=== PATIENT | female | born 1975 | race Caucasian/White ===

== ENCOUNTER 2017-03-08 21:24 | Emergency (ER) | payer BC, MEDICAID ==
[~2017-03-08] VITALS: Ht 160 cm; Wt 98.6 kg
[~2017-03-08 21:24] MED LIST: CIPR500T87 PO; DOCU-131 PO; IBUP-1222 PO; METR500T PO; ONDA4TAB13 SL; OXYC-302 PO; PREN1TAB52 PO; TRAM50TA2 PO
[2017-03-08 21:55] LABS: HEMATOCRIT 43.6 % (34.6-47.8); HEMOGLOBIN 14.7 g/dL (11.7-16.4); WHITE BLOOD COUNT 15.3 x10^3/uL (3.4-10)
[2017-03-08] MEDS ORDERED: morphine SULFATE 10 MG/ML, 1ML ONE (21:55)
[2017-03-08] MEDS ORDERED: ONDANSETRON 2MG/ML, 2ML ONE (21:55)
[2017-03-08] MEDS ORDERED: SODIUM CHLORIDE FLUSH 10ML SYR IVF ONE (22:00)
[2017-03-08] MEDS ORDERED: MORPHINE SULFATE 4 MG/ML, 1ML IVPush PRN (22:00)
[2017-03-08] MEDS ORDERED: SODIUM CHLORIDE 0.9% 1,000ML IVBOLUS ONE (22:00)
[2017-03-08] MEDS ORDERED: ONDANSETRON 2MG/ML, 2ML IVPush ONE (22:00)
[2017-03-08 22:07] LABS: ASPARTATE AMINO TRANSFERASE 13 U/L (15-37); BLOOD UREA NITROGEN 12 mg/dL (7-18)
[2017-03-08] MEDS ORDERED: OMNIPAQUE 350 MG/ML, 100ML BOTTLE ONE (22:42)
[2017-03-08] MEDS ORDERED: HYDROcodone/APAP 5/325 TABLET PO ONE (23:00)
[2017-03-08] MEDS ORDERED: metroNIDAZOLE 500 MG TABLET PO ONE (23:00)
[2017-03-08] MEDS ORDERED: CIPROFLOXACIN 500 MG TABLET PO ONE (23:00)
[2017-03-08] MEDS ORDERED: metroNIDAZOLE 500 MG TABLET ONE (23:04)
[2017-03-08] MEDS ORDERED: HYDROcodone/APAP 5/325 TABLET ONE (23:04)
[2017-03-08] MEDS ORDERED: CIPROFLOXACIN 500 MG TABLET ONE (23:04)
[2017-03-08 23:07] VITALS: BP 124/76
== END 2017-03-08 23:36 | disposition home or self-care (01) ==
LOC: ED 21:58
DX: K57.32 Diverticulitis of large intestine without perforation or abscess without bleeding (principal); Z90.49 Acquired absence of other specified parts of digestive tract
CPT/HCPCS: 36415; 74177; 80053; 81001; 84703; 85025; 87086; 96361; 96374; 96375; 99285; J2405; J7030; Q9967

== ENCOUNTER 2018-07-16 01:13 | Emergency (ER) | payer BC ==
[~2018-07-16] VITALS: Ht 160 cm; Wt 107.8 kg
[~2018-07-16 01:13] MED LIST changes: +CEPH-368 PO; +SULF-169 PO; +[UNRECOGNIZED DRUG - REMARK] PO
[2018-07-16 01:16] VITALS: BP 167/113
[2018-07-16] MEDS ORDERED: KETOROLAC 30 MG/1 ML ONE (01:55)
[2018-07-16] MEDS ORDERED: KETOROLAC 30 MG/1 ML IM ONE (02:00)
[2018-07-16] MEDS ORDERED: ACETAMINOPHEN 500 MG TABLET ONE (02:43)
[2018-07-16] MEDS ORDERED: ACETAMINOPHEN 500 MG TABLET PO ONE (03:00)
== END 2018-07-16 03:35 | disposition home or self-care (01) ==
LOC: ED 02:40
DX: M25.572 Pain in left ankle and joints of left foot (principal)
CPT/HCPCS: 29515; 73610; 93971; 96372; 99284; J1885

== ENCOUNTER 2018-08-08 10:43 | Inpatient (IN) | payer BC ==
[2018-08-05 11:31] LABS: BASOPHILS # (AUTO) 0.05 x10^3/uL (0-0.1); BASOPHILS % (AUTO) 1 % (0-1); EOSINOPHILS # (AUTO) 0.21 x10^3/uL (0-0.4); EOSINOPHILS % (AUTO) 2 % (1-7); LYMPHOCYTES # (AUTO) 2.56 x10^3/uL (1-3.4); LYMPHOCYTES % (AUTO) 25 % (22-44); MD NO; MEAN CORPUSCULAR HEMOGLOBIN 30.1 pg (27.0-34.8); MEAN CORPUSCULAR VOLUME 88.7 fL (80-100); MEAN PLATELET VOLUME 7.6 fL (7.4-10.4); MONOCYTES # (AUTO) 0.53 x10^3/uL (0.2-0.8); MONOCYTES % (AUTO) 5 % (2-9); NEUTROPHILS # (AUTO) 6.71 x10^3/uL (1.8-6.8); NEUTROPHILS % (AUTO) 67 % (42-75); PLATELET COUNT 519 x10^3/uL (130-400); RED BLOOD COUNT 4.82 x10^6/uL (3.82-5.3)
[2018-08-05 11:38] LABS: ALANINE AMINOTRANSFERASE 44 U/L (12-78); ALBUMIN 3.5 g/dL (3.4-5.0); ANION GAP 5 mmol/L (5-15); CALCIUM 8.3 mg/dL (8.5-10.1); CHLORIDE 107 mmol/L (98-107); CREATININE 0.74 mg/dL (0.55-1.02)
[2018-08-05 11:40] LABS: ALKALINE PHOSPHATASE 81 U/L (45-117); BILIRUBIN,TOTAL 0.5 mg/dL (0.2-1.0); TOTAL PROTEIN 7.2 g/dL (6.4-8.2)
[~2018-08-08] VITALS: Ht 162.6 cm; Wt 100.4 kg
[~2018-08-08 10:43] MED LIST changes: +ONDA4TAB7 PO
[2018-08-08] MEDS ORDERED: LACTATED RINGERS 1,000 ML IV SCH ×2 (14:06→14:17)
[2018-08-08 14:11] VITALS: BP 148/102
[2018-08-08 14:29] LABS: HCG UR SG 1.017 (1.003-1.030)
[2018-08-08] MEDS ORDERED: FENTANYL PF 250 MCG/5ML ONE ×2 (17:53→18:44)
[2018-08-08] MEDS ORDERED: MIDAZOLAM 1 MG/ML, 2ML ONE (17:53)
[2018-08-08] MEDS ORDERED: LIDOCAINE PF 2%, 5ML ONE (18:13)
[2018-08-08] MEDS ORDERED: hydrALAzine 20 MG/ML, 1ML ONE (18:13)
[2018-08-08] MEDS ORDERED: ROCURONIUM 10MG/ML,5ML ONE (18:44)
[2018-08-08] MEDS ORDERED: SUCCINYLCHOLINE 20 MG/ML, 10ML ONE (18:44)
[2018-08-08] MEDS ORDERED: NEOSTIGMINE 1 MG/ML, 10ML ONE (18:44)
[2018-08-08] MEDS ORDERED: ONDANSETRON 2MG/ML, 2ML ONE ×2 (18:44→21:05)
[2018-08-08] MEDS ORDERED: PROPOFOL 10 MG/ML, 20ML ONE (18:44)
[2018-08-08] MEDS ORDERED: DEXAMETHASONE 4 MG/ML, 1ML ONE (18:44)
[2018-08-08] MEDS ORDERED: GLYCOPYRROLATE 0.2MG/1ML, 5ML ONE (18:44)
[2018-08-08] MEDS ORDERED: CEFAZOLIN 1,000 MG ONE (18:44)
[2018-08-08] MEDS ORDERED: ONDANSETRON ODT 8 MG PO PRN (19:00)
[2018-08-08] MEDS ORDERED: PROMETHAZINE 25 MG/ML, 1ML IV PRN (19:00)
[2018-08-08] MEDS ORDERED: FENTANYL PF 100 MCG/2ML IV PRN (19:00)
[2018-08-08] MEDS ORDERED: ONDANSETRON 2MG/ML, 2ML IV PRN (19:00)
[2018-08-08] MEDS ORDERED: LORazepam 2 MG/ML, 1ML IVPush PRN (19:00)
[2018-08-08] MEDS ORDERED: ACETAMINOPHEN 325 MG TABLET PO PRN (19:00)
[2018-08-08] MEDS ORDERED: OXYcodone 5 MG/5 ML ORAL.SOL UDC PO PRN (19:00)
[2018-08-08] MEDS ORDERED: MEPERIDINE/PF 25MG/0.5ML IVPush PRN (19:00)
[2018-08-08] MEDS ORDERED: SUGAMMADEX 200 MG/2 ML IVPush ONE (20:03)
[2018-08-08] MEDS ORDERED: OXYcodone 5 MG/5 ML ORAL.SOL UDC ONE (20:22)
[2018-08-08] MEDS ORDERED: FENTANYL PF 100 MCG/2ML ONE (20:22)
[2018-08-08] MEDS ORDERED: HYDROmorphone 2 MG/ML, 1ML ONE (20:22)
[2018-08-08] MEDS: HYDROmorphone 2 MG/ML, 1ML IVPush PRN ×2 (20:26→20:35)
[2018-08-08] MEDS ORDERED: LABETALOL 5 MG/ML SYRINGE IVPush PRN (20:30)
[2018-08-08] MEDS ORDERED: ENALAPRILAT 1.25 MG/ML, 2ML IVPush PRN (20:30)
[2018-08-08] MEDS ORDERED: PROMETHAZINE 25 MG/ML, 1ML IM PRN (20:30)
[2018-08-08] MEDS ORDERED: morphine SULFATE 10 MG/ML, 1ML IVPush PRN (20:30)
[2018-08-08] MEDS: D5%-0.45NACL+KCL 20MEQ 1,000 ML IV SCH (23:54)
[2018-08-09 00:07] VITALS: BP 139/92
[2018-08-09] MEDS: ONDANSETRON 2MG/ML, 2ML IVPush PRN ×3 (02:08→21:00)
[2018-08-09 04:18] VITALS: BP 141/94
[2018-08-09] MEDS: CEFOTETAN PMX 1GM/50ML 50 ML IVPB SCH ×2 (05:59→18:02)
[2018-08-09 06:26] LABS: BASOPHILS % (AUTO) 0 % (0-1); EOSINOPHILS % (AUTO) 0 % (1-7); LYMPHOCYTES # (AUTO) 0.85 x10^3/uL (1-3.4); LYMPHOCYTES % (AUTO) 5 % (22-44); MD NO; MEAN CORPUSCULAR HEMOGLOBIN 30.2 pg (27.0-34.8); MEAN CORPUSCULAR HGB CONC 34.4 g/dL (32.4-35.8); MEAN CORPUSCULAR VOLUME 88.1 fL (80-100); MEAN PLATELET VOLUME 7.7 fL (7.4-10.4); MONOCYTES # (AUTO) 0.57 x10^3/uL (0.2-0.8); MONOCYTES % (AUTO) 3 % (2-9); NEUTROPHILS # (AUTO) 15.07 x10^3/uL (1.8-6.8); NEUTROPHILS % (AUTO) 91 % (42-75); PLATELET COUNT 446 x10^3/uL (130-400); RED BLOOD COUNT 4.61 x10^6/uL (3.82-5.3); RED CELL DISTRIBUTION WIDTH 12.9 % (9.6-15.2)
[2018-08-09 06:35] LABS: CHLORIDE 106 mmol/L (98-107)
[2018-08-09 06:53] LABS: ANION GAP 6 mmol/L (5-15); CALCIUM 8.2 mg/dL (8.5-10.1)
[2018-08-09 08:51] VITALS: BP 143/84
[2018-08-09] MEDS: D5%-0.45NACL+KCL 20MEQ 1,000 ML IV SCH ×2 (10:15→21:36)
[2018-08-09 14:59] VITALS: BP 138/89
[2018-08-09 21:05] VITALS: BP 131/92
[2018-08-10 02:56] VITALS: BP 117/71
[2018-08-10] MEDS: ENOXAPARIN 30 MG/0.3 ML SQ SCH ×2 (08:19→20:35)
[2018-08-10 09:35] VITALS: BP 132/83
[2018-08-10] MEDS: ONDANSETRON 2MG/ML, 2ML IVPush PRN (10:11)
[2018-08-10] MEDS: D5%-0.45NACL+KCL 20MEQ 1,000 ML IV SCH ×2 (10:11→20:35)
[2018-08-10 15:54] VITALS: BP 137/92
[2018-08-10 20:28] VITALS: BP 151/87
[2018-08-11 01:55] VITALS: BP 143/85
[2018-08-11 05:15] LABS: BASOPHILS # (AUTO) 0.05 x10^3/uL (0-0.1); BASOPHILS % (AUTO) 1 % (0-1); EOSINOPHILS # (AUTO) 0.12 x10^3/uL (0-0.4); EOSINOPHILS % (AUTO) 1 % (1-7); LYMPHOCYTES # (AUTO) 1.65 x10^3/uL (1-3.4); LYMPHOCYTES % (AUTO) 17 % (22-44); MD NO; MEAN CORPUSCULAR HEMOGLOBIN 29.5 pg (27.0-34.8); MEAN CORPUSCULAR HGB CONC 33.4 g/dL (32.4-35.8); MEAN CORPUSCULAR VOLUME 88.2 fL (80-100); MEAN PLATELET VOLUME 7.5 fL (7.4-10.4); MONOCYTES % (AUTO) 6 % (2-9); NEUTROPHILS # (AUTO) 7.16 x10^3/uL (1.8-6.8); NEUTROPHILS % (AUTO) 75 % (42-75); PLATELET COUNT 409 x10^3/uL (130-400); RED BLOOD COUNT 4.45 x10^6/uL (3.82-5.3)
[2018-08-11 05:20] LABS: ANION GAP 6 mmol/L (5-15); CALCIUM 8.5 mg/dL (8.5-10.1); CHLORIDE 103 mmol/L (98-107); CREATININE 0.65 mg/dL (0.55-1.02)
[2018-08-11] MEDS: D5%-0.45NACL+KCL 20MEQ 1,000 ML IV SCH ×2 (06:01→20:39)
[2018-08-11 08:06] VITALS: BP 142/87
[2018-08-11] MEDS: ENOXAPARIN 30 MG/0.3 ML SQ SCH ×2 (08:07→19:33)
[2018-08-11 12:12] VITALS: BP 152/86
[2018-08-11 21:48] VITALS: BP 156/108
[2018-08-12 01:40] VITALS: BP 142/101
[2018-08-12 07:25] VITALS: BP 138/98
[2018-08-12] MEDS ORDERED: MORPHINE SULFATE 4 MG/ML, 1ML IVPush PRN (07:30)
[2018-08-12] MEDS: ENOXAPARIN 30 MG/0.3 ML SQ SCH ×2 (08:01→19:51)
[2018-08-12] MEDS: D5%-0.45NACL+KCL 20MEQ 1,000 ML IV SCH (08:11)
[2018-08-12] MEDS: OXYcodone/APAP 5/325MG TABLET PO PRN ×4 (08:17→20:33)
[2018-08-12] MEDS: ONDANSETRON 2MG/ML, 2ML IVPush PRN (09:41)
[2018-08-12 14:07] VITALS: BP 132/82
[2018-08-12 21:00] VITALS: BP 149/97
[2018-08-13] MEDS: OXYcodone/APAP 5/325MG TABLET PO PRN ×5 (01:29→20:14)
[2018-08-13 04:42] VITALS: BP 140/97
[2018-08-13 05:26] LABS: BASOPHILS # (AUTO) 0.05 x10^3/uL (0-0.1); BASOPHILS % (AUTO) 1 % (0-1); EOSINOPHILS # (AUTO) 0.22 x10^3/uL (0-0.4); EOSINOPHILS % (AUTO) 3 % (1-7); LYMPHOCYTES # (AUTO) 2.01 x10^3/uL (1-3.4); LYMPHOCYTES % (AUTO) 24 % (22-44); MD NO; MEAN CORPUSCULAR HEMOGLOBIN 30.2 pg (27.0-34.8); MEAN CORPUSCULAR HGB CONC 34.2 g/dL (32.4-35.8); MEAN CORPUSCULAR VOLUME 88.3 fL (80-100); MEAN PLATELET VOLUME 7.6 fL (7.4-10.4); MONOCYTES # (AUTO) 0.61 x10^3/uL (0.2-0.8); MONOCYTES % (AUTO) 7 % (2-9); NEUTROPHILS # (AUTO) 5.41 x10^3/uL (1.8-6.8); NEUTROPHILS % (AUTO) 65 % (42-75); PLATELET COUNT 403 x10^3/uL (130-400); RED CELL DISTRIBUTION WIDTH 12.6 % (9.6-15.2)
[2018-08-13 05:40] LABS: CALCIUM 8.7 mg/dL (8.5-10.1); CHLORIDE 100 mmol/L (98-107)
[2018-08-13 05:43] LABS: ANION GAP 8 mmol/L (5-15)
[2018-08-13] MEDS: ENOXAPARIN 30 MG/0.3 ML SQ SCH ×2 (08:18→20:14)
[2018-08-13 08:22] VITALS: BP 146/86
[2018-08-13] MEDS: D5%-0.45NACL+KCL 20MEQ 1,000 ML IV SCH (09:28)
[2018-08-13 13:00] VITALS: BP 129/90
[2018-08-13 20:27] VITALS: BP 136/92
[2018-08-14] MEDS: OXYcodone/APAP 5/325MG TABLET PO PRN ×6 (00:06→21:07)
[2018-08-14 02:45] VITALS: BP 145/104
[2018-08-14] MEDS: ENOXAPARIN 30 MG/0.3 ML SQ SCH ×2 (07:28→19:34)
[2018-08-14] MEDS ORDERED: BISACODYL 10 MG SUPP PR ONE (07:30)
[2018-08-14] MEDS: D5%-0.45NACL+KCL 20MEQ 1,000 ML IV SCH ×2 (07:30→23:14)
[2018-08-14 07:50] VITALS: BP 155/109
[2018-08-14 08:57] VITALS: BP 135/89
[2018-08-14 12:12] VITALS: BP 147/98
[2018-08-14 19:09] VITALS: BP 124/83
[2018-08-15] MEDS: OXYcodone/APAP 5/325MG TABLET PO PRN ×2 (03:37→11:52)
[2018-08-15 04:23] VITALS: BP 139/97
[2018-08-15 06:58] VITALS: BP 159/98
[2018-08-15] MEDS: ENOXAPARIN 30 MG/0.3 ML SQ SCH (08:14)
[2018-08-15] MEDS ORDERED: OXYC-302 PO (12:00)
[2018-08-15] MEDS ORDERED: CEPH-368 PO (12:00)
== END 2018-08-15 12:53 | disposition home or self-care (01) | DRG 331 ==
LOC: ORIP 13:42 → EDSTATUS 16:00 → 4NOR 22:39 → DCLOUNGE 08-15 12:41
PROVIDERS: ADMIT Surgery; ATTEND Surgery
PROC: 0DTJ0ZZ Resection of Appendix, Open Approach (ICD-10-PCS; 2018-08-08)
PROC: 0DTG0ZZ Resection of Left Large Intestine, Open Approach (ICD-10-PCS; principal; 2018-08-08 16:00)
DX: K57.32 Diverticulitis of large intestine without perforation or abscess without bleeding (principal); Z68.38 Body mass index [BMI] 38.0-38.9, adult; E66.01 Morbid (severe) obesity due to excess calories
CPT/HCPCS: 36415; 80048; 80053; 81025; 85025; 86850; 86900; 88302; 88307; 93005; G0378; J0690; J1100; J1170; J1650; J2250; J2270; J2405; J2704; J2710; J3010; J0330; J0360; J3480; J3490; J7120

== ENCOUNTER 2020-04-08 09:45 | Emergency (ER) | payer SELFPAY ==
[~2020-04-08] VITALS: Ht 160 cm; Wt 109.1 kg
--- NOTE | 2020-04-08 11:06 | NUR ---
PT CAME IN CO OF SORE THROAT, BODY ACHES, CHILLS, FEVERS, EAR ACHES X 7 DAYS. PT SAY SHE TOOK TYLENOL AT HOME FOR FEVER. PT RESTING IN [facility]. CONNECTED TO MONITORING EQUIPMENT.
[2020-04-08 11:25] LABS: BASOPHILS % (AUTO) 1 % (0-1); EOSINOPHILS % (AUTO) 0 % (1-7); LYMPHOCYTES % (AUTO) 27 % (22-44); MEAN CORPUSCULAR HEMOGLOBIN 29.4 pg (27.0-34.8); MEAN CORPUSCULAR HGB CONC 34.4 g/dL (32.4-35.8); MEAN PLATELET VOLUME 7.6 fL (7.4-10.4); MONOCYTES % (AUTO) 9 % (2-9); NEUTROPHILS % (AUTO) 64 % (42-75); PLATELET COUNT 341 x10^3/uL (130-400); RED BLOOD COUNT 5.01 x10^6/uL (3.82-5.3); RED CELL DISTRIBUTION WIDTH 13.1 % (9.6-15.2)
[2020-04-08 11:31] LABS: MD NO
[2020-04-08 11:36] LABS: ALBUMIN 3.6 g/dL (3.4-5.0); ANION GAP 6 mmol/L (5-15); CALCIUM 8.8 mg/dL (8.5-10.1); CHLORIDE 105 mmol/L (98-107)
[2020-04-08 11:43] LABS: CREATININE 0.84 mg/dL (0.55-1.02)
--- NOTE | 2020-04-08 12:16 | NUR ---
PT RESTING IN [facility]. NAD. VSS
[2020-04-08 13:05] VITALS: BP 150/89
--- NOTE | 2020-04-08 13:05 | NUR ---
PROVIDER BED SIDE FOR RECHECK
== END 2020-04-08 13:31 | disposition home or self-care (01) ==
LOC: ED 13:15
DX: U07.1 COVID-19 (principal); B34.9 Viral infection, unspecified; R05 Cough; R09.81 Nasal congestion; R50.9 Fever, unspecified; M19.90 Unspecified osteoarthritis, unspecified site; R06.02 Shortness of breath; Z98.51 Tubal ligation status; Z90.89 Acquired absence of other organs
CPT/HCPCS: 36415; 71045; 80048; 82040; 84703; 85025; 87081; 87635; 87880; 99284